=== PATIENT | female | born 1975 | race Caucasian/White ===

== ENCOUNTER 2022-09-10 15:45 | Outpatient (CLI) | payer BC, SELFPAY ==
--- NOTE | ~2022-09-10 | XR_ITS ---
Cervical Spine: AP, lateral, open-mouth views Clinical History: Pain Findings: There is mild reversal normal cervical lordosis. No acute fracture identified. Minimal grad e 1 anterolisthesis of C4 over C5 noted. There is advanced degenerative disc narrowing at C5-C6, with uncovertebral degenerative change at this level. Pre-vertebral soft tissues are unremarkable. Impression: Minimal grade 1 anterolisthesis of C4 over C5. Advanced degenerative disc narrowing and uncovertebral degenerative change at C5-C6 with mild reversa l normal cervical lordosis. Reviewed, dictated and finalized at [facility]. [employer] Impression: Minimal grade 1 anterolisthesis of C4 over C5. Advanced degenerative disc narrowing and uncovertebral degenerative change at C 5-C6 with mild reversal normal cervical lordosis.
== END 2022-09-10 15:46 | disposition home or self-care (01) ==
PROVIDERS: PCP Family Medicine; Visit Provider Neurological Surgery
DX: M54.2 Cervicalgia (principal)
CPT/HCPCS: 72050